=== PATIENT | male | born 1940 | race Asian ===

== ENCOUNTER 2024-03-15 09:00 | Inpatient (IN) | payer MEDICARE ==
[~2024-03-15] VITALS: Ht 167.6 cm; Wt 74.7 kg
[2024-03-15 09:10] LABS: COVID AG,FIA SOURCE NASAL SWAB
[2024-03-15 09:34] LABS: SARS-COV2 (COVID) ANTIGEN,FIA Negative (Negative)
[2024-03-15 09:35] LABS: BASOPHILS % (AUTO) 0.2 % (0.0-2.0); EOSINOPHILS % (AUTO) 0.1 % (1.0-6.0); HEMATOCRIT 37.1 % (41-53); HEMOGLOBIN 12.7 g/dL (13.5-17.5); LYMPHOCYTES # (AUTO) 0.3 K/uL (1.0-4.8); LYMPHOCYTES % (AUTO) 2.6 % (22.0-44.0); MEAN CORPUSCULAR HEMOGLOBIN 33.5 pg (26.0-34.0); MEAN CORPUSCULAR HGB CONC 34.3 G/dL (31.0-37.0); MEAN CORPUSCULAR VOLUME 98 fL (80-100); MONOCYTES # (AUTO) 0.7 K/uL (0.1-1.0); MONOCYTES % (AUTO) 6.3 % (2.0-9.0); NEUTROPHILS # (AUTO) 9.5 K/uL (1.8-7.7); NEUTROPHILS % (AUTO) 90.8 % (40.0-70.0); PLATELET COUNT (AUTO) 195 K/uL (150-450); RED CELL DISTRIBUTION WIDTH 13.2 % (11.5-14.5); WHITE BLOOD COUNT (AUTO) 10.4 K/uL (4.5-11.0)
[2024-03-15 09:46] LABS: INFLUENZA TYPE A NEGATIVE FOR TYPE A (NEGATIVE); INFLUENZA TYPE B NEGATIVE FOR TYPE B (NEGATIVE)
[2024-03-15 09:46] LABS: CALCIUM, TOTAL 8.5 mg/dL (8.8-10.5); CREATININE 1.32 mg/dL (0.60-1.30)
[2024-03-15 09:54] LABS: LACTIC ACID 1.6 mmol/L (0.4-2.0)
[2024-03-15 10:00] LABS: MAGNESIUM 1.7 mg/dL (1.80-2.40); TROPONIN I-HIGH SENSITIVITY 7066 ng/L (<76)
[2024-03-15] MEDS: ASPIRIN 81 MG CHEWABLE TABLET PO ONE (10:13)
[2024-03-15] MEDS ORDERED: HEPARIN SODIUM,PORCINE 5,000 UNITS/ML VIAL IVP PRN ×2 (10:15)
[2024-03-15] MEDS ORDERED: HEPARIN SODIUM,PORCINE 5,000 UNITS/ML VIAL IVP ONE (10:15)
[2024-03-15 10:45] LABS: PROTHROMBIN TIME 10.8 SEC (9.4-11.6)
[2024-03-15] MEDS ORDERED: DEXTROSE 50%-WATER 25 GM/50 ML SYRINGE IVP PRN (10:45)
[2024-03-15] MEDS ORDERED: ONDANSETRON HCL 4 MG/2 ML VIAL IVP PRN (10:45)
[2024-03-15] MEDS: HEPARIN SODIUM,PORCINE 5,000 UNITS/ML VIAL IVP ONE (10:51)
[2024-03-15] MEDS: MAGNESIUM SULFATE 2 GM/WATER 50 ML IV ONE (11:05)
[2024-03-15] MEDS: HEPARIN SODIUM 25000 UNITS/D5W 250 ML IV PRN (11:07)
[2024-03-15] MEDS: FUROSEMIDE 20 MG/2 ML VIAL IVP SCH ×2 (11:08→21:25)
[2024-03-15] MEDS: ATORVASTATIN CALCIUM 40 MG TABLET PO SCH (11:08)
[2024-03-15] MEDS: METOPROLOL TARTRATE 25 MG TABLET PO SCH (11:09)
[2024-03-15 12:43] LABS: TROPONIN I-HIGH SENSITIVITY 7941 ng/L (<76)
[2024-03-15 14:05] VITALS: PULSE 68; RESP 23; O2SAT 98
[2024-03-15] MEDS: FUROSEMIDE 20 MG/2 ML VIAL IVP ONE (14:10)
[2024-03-15 15:10] LABS: APPEARANCE,URINE CLEAR (CLEAR); BILIRUBIN,URINE NEGATIVE (NEGATIVE); COLOR,URINE LIGHT YELLOW (YELLOW); GLUCOSE, URINE (UA) NEGATIVE (NEGATIVE); KETONES,URINE NEGATIVE (NEGATIVE); LEUKOCYTE ESTERASE ,URINE NEGATIVE (NEGATIVE); NITRATE,URINE NEGATIVE (NEGATIVE); OCCULT BLOOD,URINE NEGATIVE (NEGATIVE); PROTEIN,URINE TRACE mg/dL (NEGATIVE); SPECIFIC GRAVITIY, URINE 1.009 (1.003-1.030); UROBILINOGEN,URINE <=1.0 mg/dL (<=1.0)
[2024-03-15 16:04] VITALS: PULSE 65; RESP 20; O2SAT 99
[2024-03-15 16:15] LABS: ABG BASE EXCESS 0.3 mmol/L (-2.0-3.0); ABG CARBOXYHEMOGLOBIN 0.5 % (0.5-1.5); ABG METHEMOGLOBIN 0.9 % (0.0-1.5); ABG OXYGEN CONTENT 18.4 mL/dL (15.0-23.0); ABG OXYGEN SATURATION 98.8 % (94.0-98.0); ABG OXYHEMOGLOBIN 97.4 % (94.0-98.0); ABG PCO2 37 mmHg (32.0-48.0); ABG PH 7.435 (7.350-7.450); ABG TOTAL HEMOGLOBIN 13.3 G/dL (13.5-17.5); PO2, ARTERIAL BG 117.3 mmHg (83.0-108.0); SOURCE, BLOOD GAS ARTERIAL; TEMPERATURE, FAHRENHEIT, BG 98.5 FAHREN (96.0-98.6)
[2024-03-15 16:16] LABS: ABG A-A DIFF O2 125.1 mmHg (10-20.0); ALLEN TEST, BLOOD GAS Positive; INSPIRATORY TIME, BG 0.9 SEC; O2 DEVICE,BLOOD GAS BIPAP (ROOM AIR); PRESSURE SUPPORT, BG 11 cm H2O; SITE, BLOOD GAS RT RADIAL; SPONTANEOUS VT, BG 517 ml
[2024-03-15 20:45] VITALS: BP 149/71; PULSE 79; RESP 26; TEMP 98.5; O2SAT 94
[2024-03-15] MEDS: DOCUSATE SODIUM 100 MG CAPSULE PO SCH (21:00)
[2024-03-15] MEDS: FAMOTIDINE 20 MG TABLET PO SCH (21:25)
[2024-03-15] MEDS ORDERED: INFLUENZA VIRUS VACCINE TVS (6MO+) 2024-25/PF 45 MCG/0.5 ML SYRINGE IM. ONE (21:30)
[2024-03-15 22:11] LABS: GLUCOMETER DEV NAME(LOC) ICUN.5; GLUCOSE,POINT OF CARE 146 MG/DL (70-110)
[2024-03-16] VITALS: BP 133/71; PULSE 77; RESP 23; TEMP 98.5; O2SAT 95
[2024-03-16] MEDS ORDERED: HEPARIN SODIUM 25000 UNITS/D5W 250 ML IV PRN ×2 (01:30→16:30)
[2024-03-16] MEDS ORDERED: HEPARIN SODIUM,PORCINE 5,000 UNITS/ML VIAL IVP ONE (01:30)
[2024-03-16] MEDS ORDERED: HEPARIN SODIUM,PORCINE 5,000 UNITS/ML VIAL IVP PRN ×4 (01:30→16:30)
[2024-03-16 04:00] VITALS: BP 135/63; PULSE 73; RESP 20; TEMP 97.9; O2SAT 94
[2024-03-16 05:41] LABS: GLUCOMETER DEV NAME(LOC) ICUN.5; GLUCOSE,POINT OF CARE 115 MG/DL (70-110)
[2024-03-16 05:43] LABS: BASOPHILS % (AUTO) 0.1 % (0.0-2.0); EOSINOPHILS % (AUTO) 0.2 % (1.0-6.0); HEMATOCRIT 37.5 % (41-53); HEMOGLOBIN 12.9 g/dL (13.5-17.5); LYMPHOCYTES # (AUTO) 0.6 K/uL (1.0-4.8); LYMPHOCYTES % (AUTO) 6.1 % (22.0-44.0); MEAN CORPUSCULAR HEMOGLOBIN 33.6 pg (26.0-34.0); MEAN CORPUSCULAR HGB CONC 34.5 G/dL (31.0-37.0); MEAN CORPUSCULAR VOLUME 97 fL (80-100); MONOCYTES # (AUTO) 0.8 K/uL (0.1-1.0); MONOCYTES % (AUTO) 7.8 % (2.0-9.0); NEUTROPHILS # (AUTO) 8.6 K/uL (1.8-7.7); PLATELET COUNT (AUTO) 217 K/uL (150-450); RED BLOOD CELL COUNT(AUTO) 3.85 MIL/uL (4.50-5.90); WHITE BLOOD COUNT (AUTO) 10.1 K/uL (4.5-11.0)
[2024-03-16 05:48] LABS: HEMOGLOBIN A1C 6.2 % (3.8-5.6)
[2024-03-16 05:56] LABS: ANION GAP 9 mmol/L (8-16); CARBON DIOXIDE 29 mmol/L (22-29); CHLORIDE 101 mmol/L (98-107); CHOL/HDL RATIO 2.2 (4.2-7.3); CHOLESTEROL 136 mg/dL (131-200); CREATININE 1.11 mg/dL (0.60-1.30); GLOMERULAR FILTR. RATE CALC > 60 mL/min (>60); GLUCOSE,RANDOM 125 mg/dL (70-110); HDL CHOLESTEROL 63 mg/dL (40-60); LDL CHOL (CALC.) 63 mg/dL (0-130); POTASSIUM 3.3 mmol/L (3.5-5.1); SODIUM SERUM 139 mmol/L (136-145); TRIGLYCERIDES 51 mg/dL (15-150); UREA NITROGEN, BLOOD 19 mg/dL (7-18)
[2024-03-16 06:02] LABS: NEUTROPHILS % (AUTO) 85.8 % (40.0-70.0)
[2024-03-16 06:03] LABS: CALCIUM, TOTAL 8.4 mg/dL (8.8-10.5)
[2024-03-16 06:15] LABS: TROPONIN I-HIGH SENSITIVITY 7576 ng/L (<76)
[2024-03-16] MEDS: POTASSIUM CHL 10 MEQ/WATER 50 ML IV PRN (06:45)
[2024-03-16] MEDS ORDERED: MAGNESIUM SULFATE 2 GM/WATER 50 ML IV PRN (06:45)
[2024-03-16] MEDS ORDERED: MAGNESIUM SULFATE 4 GM/WATER 100 ML IV PRN (06:45)
[2024-03-16] MEDS: POTASSIUM CHLORIDE 20 MEQ ER TABLET PO PRN (07:45)
[2024-03-16 08:00] VITALS: BP 144/71; PULSE 69; RESP 16; TEMP 98.2; O2SAT 96
[2024-03-16] MEDS ORDERED: POTASSIUM CHLORIDE 20 MEQ ER TABLET PO PRN (08:30)
[2024-03-16] MEDS ORDERED: POTASSIUM CHL 10 MEQ/WATER 50 ML IV PRN (08:30)
[2024-03-16] MEDS: ASPIRIN 81 MG DR TABLET PO SCH (08:59)
[2024-03-16] MEDS ORDERED: FUROSEMIDE 20 MG TABLET PO SCH (09:00)
[2024-03-16] MEDS: LISINOPRIL 5 MG TABLET PO SCH (09:10)
[2024-03-16] MEDS: SPIRONOLACTONE 25 MG TABLET PO SCH (09:10)
[2024-03-16 12:00] VITALS: BP 122/57; PULSE 72; PULSE 73; RESP 23; TEMP 98.3; O2SAT 97
[2024-03-16 15:10] LABS: SPECIMENTYPE,BODY FLUID PLEURAL
[2024-03-16 15:14] LABS: APPEARANCE,SPUN,BODY FLUID CLEAR (CLEAR); APPEARANCE,UNSPUN,BODY FLUID HAZY (CLEAR); BASOPHILS,BODY FLUID 0 %; COLOR,BODY FLUID YELLOW (LT YELLOW); EOSINOPHILS,BF (ANAL) 0 %; LYMPHOCYTES,BODY FLUID 27 %; MONOCYTES,BODY FLUID 3 %; NEUTROPHILS,BODY FLUID 53 %; TOTAL VOLUME,BODY FLUID 425 mL; WBC, BODY FLUID 365 /cu. mm.
[2024-03-16 15:15] LABS: OTHER CELLS,BODY FLUID MESOTHELIALS
[2024-03-16 16:00] VITALS: BP 112/62; PULSE 69; PULSE 73; RESP 25; TEMP 98.8; O2SAT 97
[2024-03-16 20:00] VITALS: BP 126/54; PULSE 75; RESP 21; TEMP 98.6; O2SAT 95
[2024-03-16 20:36] LABS: GLUCOMETER DEV NAME(LOC) ICU.S6; GLUCOSE,POINT OF CARE 104 MG/DL (70-110)
[2024-03-16 20:36] LABS: GLUCOMETER DEV NAME(LOC) ICU.S6; GLUCOSE,POINT OF CARE 96 MG/DL (70-110)
[2024-03-16] MEDS: HEPARIN SODIUM,PORCINE 5,000 UNITS/ML VIAL SQ SCH (23:58)
[2024-03-17] VITALS (17 sets, daily range): BP systolic 103–154; BP diastolic 47–82; PULSE 72–85; RESP 11–27; TEMP 98–98.9; O2SAT 92–98
[2024-03-17 03:31] LABS: GLUCOMETER DEV NAME(LOC) ICUN.5; GLUCOSE,POINT OF CARE 135 MG/DL (70-110)
[2024-03-17 05:16] LABS: GLUCOMETER DEV NAME(LOC) ICUN.5; GLUCOSE,POINT OF CARE 106 MG/DL (70-110)
[2024-03-17 05:45] LABS: BASOPHILS % (AUTO) 0.4 % (0.0-2.0); EOSINOPHILS % (AUTO) 0.9 % (1.0-6.0); HEMATOCRIT 40.6 % (41-53); HEMOGLOBIN 13.6 g/dL (13.5-17.5); LYMPHOCYTES # (AUTO) 0.7 K/uL (1.0-4.8); LYMPHOCYTES % (AUTO) 8.7 % (22.0-44.0); MEAN CORPUSCULAR HEMOGLOBIN 32.6 pg (26.0-34.0); MEAN CORPUSCULAR HGB CONC 33.5 G/dL (31.0-37.0); MEAN CORPUSCULAR VOLUME 98 fL (80-100); MONOCYTES # (AUTO) 0.8 K/uL (0.1-1.0); NEUTROPHILS # (AUTO) 6.6 K/uL (1.8-7.7); PLATELET COUNT (AUTO) 247 K/uL (150-450); RED BLOOD CELL COUNT(AUTO) 4.16 MIL/uL (4.50-5.90); RED CELL DISTRIBUTION WIDTH 13.4 % (11.5-14.5); WHITE BLOOD COUNT (AUTO) 8.2 K/uL (4.5-11.0)
[2024-03-17 05:52] LABS: ANION GAP 7 mmol/L (8-16); CALCIUM, TOTAL 8.6 mg/dL (8.8-10.5); CARBON DIOXIDE 30 mmol/L (22-29); CHLORIDE 102 mmol/L (98-107); CREATININE 1.11 mg/dL (0.60-1.30); GLOMERULAR FILTR. RATE CALC > 60 mL/min (>60); GLUCOSE,RANDOM 109 mg/dL (70-110); POTASSIUM 3.7 mmol/L (3.5-5.1); SODIUM SERUM 139 mmol/L (136-145); UREA NITROGEN, BLOOD 23 mg/dL (7-18)
[2024-03-17] MEDS ORDERED: NITROGLYCERIN 50 MG/D5% WATER 250 ML ONE (08:08)
[2024-03-17] MEDS ORDERED: SODIUM BICARBONATE 50 MEQ/50 ML VIAL ONE (08:08)
[2024-03-17] MEDS ORDERED: VERAPAMIL HCL 2.5 MG/ML 2 ML VIAL ONE (08:08)
[2024-03-17] MEDS ORDERED: IOHEXOL 300 MG/ML 100 ML VIAL ONE (08:08)
[2024-03-17] MEDS ORDERED: LIDOCAINE/PF 1% 30 ML VIAL ONE (08:08)
[2024-03-17] MEDS ORDERED: HEPARIN SODIUM 1000 UNITS/NS 1,000 ML ONE (08:08)
[2024-03-17] MEDS ORDERED: MIDAZOLAM HCL 2 MG/2 ML VIAL ONE (08:47)
[2024-03-17] MEDS ORDERED: FentaNYL CITRATE PF 100 MCG/2 ML VIAL ONE (08:47)
[2024-03-17] MEDS: HEPARIN SODIUM,PORCINE 1,000 UNITS/ML 10 ML VIAL IARTER ONE (09:33)
[2024-03-17] MEDS: VERAPAMIL HCL 2.5 MG/ML 2 ML VIAL IARTER ONE (09:33)
[2024-03-17] MEDS: LIDOCAINE 1% 30 ML/SOD BICARB 8.4% 4 ML SQ ONE (09:34)
[2024-03-17] MEDS: FentaNYL CITRATE PF 100 MCG/2 ML VIAL IVP ONE (09:35)
[2024-03-17] MEDS: SODIUM CHLORIDE 0.9% 500 ML IV ONE (09:36)
[2024-03-17] MEDS: NITROGLYCERIN/D5W 50 MG/250 ML IV BOTTLE IARTER ONE (09:37)
[2024-03-17] MEDS: IOHEXOL 300 MG/ML 100 ML VIAL ICOR ONE (09:38)
[2024-03-17] MEDS: HEPARIN SODIUM 2,000 UNITS in HEPARIN SODIUM 1000 UNITS/NS 1,000 ML IARTER ONE (09:38)
[2024-03-17] MEDS: MIDAZOLAM HCL 2 MG/2 ML VIAL IVP ONE (09:39)
[2024-03-17 10:06] LABS: TOTAL PROTEIN,BODY FLUID,REF 2.5 g/dL
[2024-03-17 11:50] LABS: GLUCOMETER DEV NAME(LOC) ICU.S6; GLUCOSE,POINT OF CARE 100 MG/DL (70-110)
[2024-03-17 17:10] LABS: GLUCOMETER DEV NAME(LOC) ICU.S6; GLUCOSE,POINT OF CARE 124 MG/DL (70-110)
[2024-03-17] MEDS: ACETAMINOPHEN 325 MG TABLET PO PRN (20:28)
[2024-03-17] MEDS: INSULIN LISPRO 100 UNITS/ML SQ PRN (20:34)
[2024-03-18] VITALS (7 sets, daily range): BP systolic 110–131; BP diastolic 57–66; PULSE 73–81; RESP 16–19; TEMP 97.6–98; O2SAT 97–99
[2024-03-18 00:31] LABS: GLUCOMETER DEV NAME(LOC) 5S.2D; GLUCOSE,POINT OF CARE 141 MG/DL (70-110)
[2024-03-18 07:04] LABS: BAND NEUTROPHILS % (MANUAL) 0 % (0-5)
[2024-03-18 07:07] LABS: HEMATOCRIT 39.6 % (41-53); HEMOGLOBIN 13.5 g/dL (13.5-17.5); MEAN CORPUSCULAR HEMOGLOBIN 33.1 pg (26.0-34.0); MEAN CORPUSCULAR HGB CONC 34.2 G/dL (31.0-37.0); MEAN CORPUSCULAR VOLUME 97 fL (80-100); PLATELET COUNT (AUTO) 261 K/uL (150-450); RED BLOOD CELL COUNT(AUTO) 4.08 MIL/uL (4.50-5.90); RED CELL DISTRIBUTION WIDTH 13.1 % (11.5-14.5); WHITE BLOOD COUNT (AUTO) 6.8 K/uL (4.5-11.0)
[2024-03-18 07:11] LABS: GLUCOMETER DEV NAME(LOC) 5N.2C; GLUCOSE,POINT OF CARE 86 MG/DL (70-110)
[2024-03-18 07:39] LABS: ALANINE AMINOTRANSFERASE 24 U/L (12-78); ALBUMIN 2.5 g/dL (3.4-5.0); ALKALINE PHOSPHATASE 112 U/L (46-116); ANION GAP 6 mmol/L (8-16); ASPARTATE AMINOTRANSFERASE 28 U/L (15-37); BILIRUBIN,TOTAL 0.8 mg/dL (0.1-1.0); CALCIUM, TOTAL 8.8 mg/dL (8.8-10.5); CARBON DIOXIDE 31 mmol/L (22-29); CHLORIDE 103 mmol/L (98-107); CREATININE 1.14 mg/dL (0.60-1.30); GLOMERULAR FILTR. RATE CALC > 60 mL/min (>60); GLUCOSE,RANDOM 87 mg/dL (70-110); POTASSIUM 3.8 mmol/L (3.5-5.1); SODIUM SERUM 140 mmol/L (136-145); UREA NITROGEN, BLOOD 23 mg/dL (7-18)
[2024-03-18] MEDS: METOPROLOL SUCCINATE 25 MG ER TABLET PO SCH (08:12)
[2024-03-18 08:41] LABS: BASOPHILS % (MANUAL) 1 % (0-2); EOSINOPHILS % (MANUAL) 2 % (1-6); LYMPHOCYTES % (MANUAL) 8 % (22-44); MONOCYTES % (MANUAL) 6 % (2-9); SEGMENTED NEUTROPHILS % 83 % (40-70); TOTAL CELLS COUNTED 100
[2024-03-18 11:51] LABS: GLUCOMETER DEV NAME(LOC) 5N.2C; GLUCOSE,POINT OF CARE 127 MG/DL (70-110)
[2024-03-19 00:32] LABS: GLUCOMETER DEV NAME(LOC) 5N.1D; GLUCOSE,POINT OF CARE 122 MG/DL (70-110)
[2024-03-19 00:32] LABS: GLUCOMETER DEV NAME(LOC) 5S.2D; GLUCOSE,POINT OF CARE 163 MG/DL (70-110)
[2024-03-19 03:28] VITALS: BP 120/73; PULSE 68; RESP 18; TEMP 97.9; O2SAT 98
[2024-03-19 07:06] LABS: GLUCOMETER DEV NAME(LOC) 5N.1D; GLUCOSE,POINT OF CARE 102 MG/DL (70-110)
[2024-03-19 07:19] LABS: BASOPHILS % (AUTO) 0.7 % (0.0-2.0); EOSINOPHILS % (AUTO) 5.7 % (1.0-6.0); HEMATOCRIT 38.7 % (41-53); HEMOGLOBIN 13.3 g/dL (13.5-17.5); LYMPHOCYTES # (AUTO) 1.3 K/uL (1.0-4.8); LYMPHOCYTES % (AUTO) 19.5 % (22.0-44.0); MEAN CORPUSCULAR HEMOGLOBIN 33.1 pg (26.0-34.0); MEAN CORPUSCULAR HGB CONC 34.2 G/dL (31.0-37.0); MEAN CORPUSCULAR VOLUME 97 fL (80-100); MONOCYTES # (AUTO) 0.7 K/uL (0.1-1.0); MONOCYTES % (AUTO) 10.7 % (2.0-9.0); NEUTROPHILS # (AUTO) 4.2 K/uL (1.8-7.7); NEUTROPHILS % (AUTO) 63.4 % (40.0-70.0); PLATELET COUNT (AUTO) 295 K/uL (150-450); RED CELL DISTRIBUTION WIDTH 12.9 % (11.5-14.5); WHITE BLOOD COUNT (AUTO) 6.7 K/uL (4.5-11.0)
[2024-03-19 08:39] VITALS: BP 127/77; PULSE 79; RESP 18; TEMP 98; O2SAT 99
[2024-03-19 11:10] VITALS: BP 130/64; PULSE 70; RESP 19; TEMP 98.3; O2SAT 97
[2024-03-19 15:13] VITALS: BP 107/66; PULSE 68; RESP 18; TEMP 98.1; O2SAT 97
[2024-03-19 18:31] LABS: GLUCOMETER DEV NAME(LOC) 5S.2D; GLUCOSE,POINT OF CARE 145 MG/DL (70-110)
[2024-03-19 18:31] LABS: GLUCOMETER DEV NAME(LOC) 5S.2D; GLUCOSE,POINT OF CARE 106 MG/DL (70-110)
[2024-03-19 19:35] VITALS: BP 99/53; PULSE 75; RESP 18; TEMP 98.1; O2SAT 98
[2024-03-19 23:52] VITALS: BP 125/67; PULSE 70; RESP 19; TEMP 97.5; O2SAT 100
[2024-03-20 01:46] LABS: GLUCOMETER DEV NAME(LOC) 5N.2C; GLUCOSE,POINT OF CARE 138 MG/DL (70-110)
[2024-03-20 03:40] VITALS: BP 121/62; PULSE 70; RESP 18; TEMP 97.8; O2SAT 95
[2024-03-20 07:37] LABS: ANION GAP 6 mmol/L (8-16); CALCIUM, TOTAL 8.9 mg/dL (8.8-10.5); CARBON DIOXIDE 31 mmol/L (22-29); CHLORIDE 102 mmol/L (98-107); CREATININE 1.09 mg/dL (0.60-1.30); GLOMERULAR FILTR. RATE CALC > 60 mL/min (>60); GLUCOSE,RANDOM 104 mg/dL (70-110); POTASSIUM 3.6 mmol/L (3.5-5.1); SODIUM SERUM 139 mmol/L (136-145); UREA NITROGEN, BLOOD 21 mg/dL (7-18)
[2024-03-20 07:47] LABS: BASOPHILS % (AUTO) 0.7 % (0.0-2.0); EOSINOPHILS % (AUTO) 6.6 % (1.0-6.0); HEMOGLOBIN 13.4 g/dL (13.5-17.5); LYMPHOCYTES # (AUTO) 1.2 K/uL (1.0-4.8); LYMPHOCYTES % (AUTO) 20.8 % (22.0-44.0); MEAN CORPUSCULAR HEMOGLOBIN 33.2 pg (26.0-34.0); MEAN CORPUSCULAR HGB CONC 34.4 G/dL (31.0-37.0); MEAN CORPUSCULAR VOLUME 97 fL (80-100); MONOCYTES # (AUTO) 0.6 K/uL (0.1-1.0); MONOCYTES % (AUTO) 11.3 % (2.0-9.0); NEUTROPHILS # (AUTO) 3.4 K/uL (1.8-7.7); NEUTROPHILS % (AUTO) 60.6 % (40.0-70.0); PLATELET COUNT (AUTO) 334 K/uL (150-450); RED BLOOD CELL COUNT(AUTO) 4.04 MIL/uL (4.50-5.90); WHITE BLOOD COUNT (AUTO) 5.7 K/uL (4.5-11.0)
[2024-03-20 08:15] VITALS: BP 119/57; PULSE 71; RESP 16; TEMP 98; O2SAT 99
[2024-03-20 08:42] VITALS: BP 118/64; PULSE 72; RESP 18; TEMP 99; O2SAT 99
[2024-03-20 11:51] LABS: GLUCOMETER DEV NAME(LOC) 5S.1D; GLUCOSE,POINT OF CARE 117 MG/DL (70-110)
[2024-03-20 12:04] VITALS: BP 103/57; PULSE 69; RESP 18; TEMP 97.8; O2SAT 96
[2024-03-20 15:57] VITALS: BP 106/55; PULSE 68; RESP 17; TEMP 97.7; O2SAT 98
[2024-03-20 18:06] LABS: GLUCOMETER DEV NAME(LOC) 5S.1D; GLUCOSE,POINT OF CARE 116 MG/DL (70-110)
[2024-03-20 18:06] LABS: GLUCOMETER DEV NAME(LOC) 5S.2D; GLUCOSE,POINT OF CARE 122 MG/DL (70-110)
[2024-03-20 19:45] VITALS: BP 105/57; PULSE 72; RESP 18; TEMP 98.3; O2SAT 97
[2024-03-21] VITALS (7 sets, daily range): BP systolic 95–120; BP diastolic 50–63; PULSE 64–78; RESP 17–19; TEMP 97.4–98.5; O2SAT 96–100
[2024-03-21 06:26] LABS: GLUCOMETER DEV NAME(LOC) 5S.1D; GLUCOSE,POINT OF CARE 136 MG/DL (70-110)
[2024-03-21 07:10] LABS: GLUCOMETER DEV NAME(LOC) 5S.1D; GLUCOSE,POINT OF CARE 117 MG/DL (70-110)
[2024-03-21 12:21] LABS: GLUCOMETER DEV NAME(LOC) 5S.1D; GLUCOSE,POINT OF CARE 129 MG/DL (70-110)
[2024-03-22] VITALS (7 sets, daily range): BP systolic 98–121; BP diastolic 55–65; PULSE 60–67; RESP 17–18; TEMP 97.5–98.2; O2SAT 96–100
[2024-03-22 03:06] LABS: GLUCOMETER DEV NAME(LOC) 5S.2D; GLUCOSE,POINT OF CARE 119 MG/DL (70-110)
[2024-03-22 03:06] LABS: GLUCOMETER DEV NAME(LOC) 5S.2D; GLUCOSE,POINT OF CARE 160 MG/DL (70-110)
[2024-03-22 08:16] LABS: BASOPHILS % (AUTO) 0.7 % (0.0-2.0); EOSINOPHILS % (AUTO) 6.1 % (1.0-6.0); HEMATOCRIT 38.6 % (41-53); HEMOGLOBIN 13.2 g/dL (13.5-17.5); LYMPHOCYTES # (AUTO) 1.4 K/uL (1.0-4.8); LYMPHOCYTES % (AUTO) 24.2 % (22.0-44.0); MEAN CORPUSCULAR HEMOGLOBIN 33.2 pg (26.0-34.0); MEAN CORPUSCULAR HGB CONC 34.3 G/dL (31.0-37.0); MEAN CORPUSCULAR VOLUME 97 fL (80-100); MONOCYTES # (AUTO) 0.5 K/uL (0.1-1.0); MONOCYTES % (AUTO) 9.1 % (2.0-9.0); NEUTROPHILS # (AUTO) 3.4 K/uL (1.8-7.7); NEUTROPHILS % (AUTO) 59.9 % (40.0-70.0); PLATELET COUNT (AUTO) 368 K/uL (150-450); RED BLOOD CELL COUNT(AUTO) 3.99 MIL/uL (4.50-5.90); RED CELL DISTRIBUTION WIDTH 13.2 % (11.5-14.5); WHITE BLOOD COUNT (AUTO) 5.6 K/uL (4.5-11.0)
[2024-03-22 08:21] LABS: GLUCOMETER DEV NAME(LOC) 5S.1D; GLUCOSE,POINT OF CARE 144 MG/DL (70-110)
[2024-03-22 11:36] LABS: GLUCOMETER DEV NAME(LOC) 5S.1D; GLUCOSE,POINT OF CARE 121 MG/DL (70-110)
[2024-03-22 21:01] LABS: GLUCOMETER DEV NAME(LOC) 5S.1D; GLUCOSE,POINT OF CARE 134 MG/DL (70-110)
[2024-03-22 21:01] LABS: GLUCOMETER DEV NAME(LOC) 5S.1D; GLUCOSE,POINT OF CARE 129 MG/DL (70-110)
[2024-03-23 04:29] VITALS: BP 97/55; PULSE 63; RESP 17; TEMP 98; O2SAT 96
[2024-03-23 07:37] LABS: BASOPHILS % (AUTO) 0.5 % (0.0-2.0); EOSINOPHILS % (AUTO) 5.5 % (1.0-6.0); HEMATOCRIT 39.7 % (41-53); HEMOGLOBIN 13.7 g/dL (13.5-17.5); LYMPHOCYTES # (AUTO) 1.5 K/uL (1.0-4.8); LYMPHOCYTES % (AUTO) 23.2 % (22.0-44.0); MEAN CORPUSCULAR HEMOGLOBIN 33.3 pg (26.0-34.0); MEAN CORPUSCULAR HGB CONC 34.6 G/dL (31.0-37.0); MEAN CORPUSCULAR VOLUME 96 fL (80-100); MONOCYTES # (AUTO) 0.6 K/uL (0.1-1.0); MONOCYTES % (AUTO) 9.6 % (2.0-9.0); NEUTROPHILS % (AUTO) 61.2 % (40.0-70.0); PLATELET COUNT (AUTO) 365 K/uL (150-450); RED BLOOD CELL COUNT(AUTO) 4.13 MIL/uL (4.50-5.90); RED CELL DISTRIBUTION WIDTH 12.7 % (11.5-14.5); WHITE BLOOD COUNT (AUTO) 6.6 K/uL (4.5-11.0)
[2024-03-23 07:41] VITALS: BP 118/64; PULSE 68; RESP 18; TEMP 98; O2SAT 98
[2024-03-23 07:43] LABS: CALCIUM, TOTAL 9.2 mg/dL (8.8-10.5); CREATININE 1.23 mg/dL (0.60-1.30); POTASSIUM 4.1 mmol/L (3.5-5.1)
[2024-03-23 09:06] LABS: GLUCOMETER DEV NAME(LOC) 5S.1D; GLUCOSE,POINT OF CARE 105 MG/DL (70-110)
[2024-03-23 11:08] VITALS: BP 110/60; PULSE 64; RESP 19; TEMP 98; O2SAT 97
[2024-03-23 13:11] LABS: GLUCOMETER DEV NAME(LOC) 5N.2C; GLUCOSE,POINT OF CARE 90 MG/DL (70-110)
[2024-03-23 16:07] VITALS: BP 129/60; PULSE 68; RESP 19; TEMP 97.8; O2SAT 97
[2024-03-23 19:36] VITALS: BP 107/58; PULSE 65; RESP 18; TEMP 98.1; O2SAT 99
[2024-03-23 21:31] LABS: GLUCOMETER DEV NAME(LOC) 5S.2D; GLUCOSE,POINT OF CARE 145 MG/DL (70-110)
[2024-03-23 23:36] VITALS: BP 119/57; PULSE 65; RESP 17; TEMP 98.1; O2SAT 98
[2024-03-24 03:27] VITALS: BP 111/58; PULSE 66; RESP 16; TEMP 97.9; O2SAT 97
[2024-03-24 05:56] LABS: GLUCOMETER DEV NAME(LOC) 5S.2D; GLUCOSE,POINT OF CARE 156 MG/DL (70-110)
[2024-03-24 07:51] VITALS: BP 110/56; PULSE 66; RESP 18; TEMP 98; O2SAT 98
[2024-03-24] MEDS: DAPAGLIFLOZIN PROPANEDIOL 5 MG TABLET PO SCH (09:56)
[2024-03-24 11:11] LABS: GLUCOMETER DEV NAME(LOC) 5N.2C; GLUCOSE,POINT OF CARE 101 MG/DL (70-110)
[2024-03-24 11:29] VITALS: BP 116/59; PULSE 63; RESP 18; TEMP 98; O2SAT 98
[2024-03-24 17:16] LABS: GLUCOMETER DEV NAME(LOC) 5S.2D; GLUCOSE,POINT OF CARE 116 MG/DL (70-110)
[2024-03-24 17:31] VITALS: BP 100/51; PULSE 63; RESP 19; TEMP 97; O2SAT 98
[2024-03-24 19:11] LABS: GLUCOMETER DEV NAME(LOC) 5S.1D; GLUCOSE,POINT OF CARE 102 MG/DL (70-110)
[2024-03-24 19:39] VITALS: BP 100/51; PULSE 60; RESP 18; TEMP 97.7; O2SAT 97
[2024-03-24 23:44] VITALS: BP 108/53; PULSE 60; RESP 18; TEMP 98.2; O2SAT 99
[2024-03-24 23:46] LABS: GLUCOMETER DEV NAME(LOC) 5S.1D; GLUCOSE,POINT OF CARE 129 MG/DL (70-110)
[2024-03-25 04:44] VITALS: BP 114/59; PULSE 61; RESP 18; TEMP 97.7; O2SAT 98
[2024-03-25] MEDS: MAGNESIUM HYDROXIDE SUSPENSION 30 ML UDCUP PO PRN (08:13)
[2024-03-25 08:15] VITALS: BP 107/53; PULSE 65; RESP 18; TEMP 97.7; O2SAT 98
[2024-03-25 08:25] LABS: GLUCOMETER DEV NAME(LOC) 5S.2D; GLUCOSE,POINT OF CARE 122 MG/DL (70-110)
[2024-03-25] MEDS ORDERED: FUROSEMIDE 20 MG/2 ML VIAL IVP SCH (09:00)
[2024-03-25] MEDS: BENZONATATE 100 MG CAPSULE PO SCH (10:56)
[2024-03-25 11:50] LABS: GLUCOMETER DEV NAME(LOC) 5N.2C; GLUCOSE,POINT OF CARE 134 MG/DL (70-110)
[2024-03-25 11:51] VITALS: BP 107/53; PULSE 63; RESP 18; TEMP 97.7; O2SAT 98
[2024-03-25 16:32] VITALS: BP 110/56; PULSE 65; RESP 18; TEMP 98.2; O2SAT 97
[2024-03-25 19:17] VITALS: BP 100/56; PULSE 70; RESP 17; TEMP 98.3; O2SAT 96
[2024-03-25 19:26] LABS: GLUCOMETER DEV NAME(LOC) 5S.1D; GLUCOSE,POINT OF CARE 107 MG/DL (70-110)
[2024-03-25 21:26] LABS: GLUCOMETER DEV NAME(LOC) 5N.2C; GLUCOSE,POINT OF CARE 179 MG/DL (70-110)
[2024-03-26 00:06] VITALS: BP 99/60; PULSE 62; RESP 18; TEMP 97.6; O2SAT 99
[2024-03-26 06:12] VITALS: BP 118/59; PULSE 65; RESP 18; TEMP 98; O2SAT 98
[2024-03-26 06:51] LABS: GLUCOMETER DEV NAME(LOC) 5N.2C; GLUCOSE,POINT OF CARE 100 MG/DL (70-110)
[2024-03-26 07:21] VITALS: BP 114/60; PULSE 69; RESP 18; TEMP 98; O2SAT 96
[2024-03-26 07:46] LABS: BASOPHILS % (AUTO) 0.8 % (0.0-2.0); EOSINOPHILS % (AUTO) 4.2 % (1.0-6.0); HEMATOCRIT 40.7 % (41-53); HEMOGLOBIN 14.1 g/dL (13.5-17.5); LYMPHOCYTES # (AUTO) 1.5 K/uL (1.0-4.8); LYMPHOCYTES % (AUTO) 25.4 % (22.0-44.0); MEAN CORPUSCULAR HEMOGLOBIN 33.4 pg (26.0-34.0); MEAN CORPUSCULAR HGB CONC 34.5 G/dL (31.0-37.0); MEAN CORPUSCULAR VOLUME 97 fL (80-100); MONOCYTES # (AUTO) 0.6 K/uL (0.1-1.0); MONOCYTES % (AUTO) 10.5 % (2.0-9.0); NEUTROPHILS # (AUTO) 3.4 K/uL (1.8-7.7); NEUTROPHILS % (AUTO) 59.1 % (40.0-70.0); PLATELET COUNT (AUTO) 394 K/uL (150-450); RED CELL DISTRIBUTION WIDTH 13.2 % (11.5-14.5); WHITE BLOOD COUNT (AUTO) 5.8 K/uL (4.5-11.0)
[2024-03-26] MEDS: FUROSEMIDE 20 MG/2 ML VIAL IVP SCH (07:47)
[2024-03-26 08:00] LABS: CREATININE 1.41 mg/dL (0.60-1.30); POTASSIUM 4.5 mmol/L (3.5-5.1)
[2024-03-26] MEDS: FUROSEMIDE 20 MG TABLET PO SCH (10:34)
[2024-03-26 10:51] VITALS: BP 107/53; PULSE 66; RESP 19; TEMP 98; O2SAT 97
[2024-03-26 12:41] LABS: GLUCOMETER DEV NAME(LOC) 5N.2C; GLUCOSE,POINT OF CARE 129 MG/DL (70-110)
[2024-03-26 14:55] VITALS: BP 105/49; PULSE 62; RESP 18; TEMP 98.1; O2SAT 98
[2024-03-26 18:51] LABS: GLUCOMETER DEV NAME(LOC) 5S.1D; GLUCOSE,POINT OF CARE 104 MG/DL (70-110)
[2024-03-26 19:34] VITALS: BP 99/52; PULSE 70; RESP 18; TEMP 97.9; O2SAT 97
[2024-03-27] VITALS (8 sets, daily range): BP systolic 97–124; BP diastolic 53–76; PULSE 58–70; RESP 17–18; TEMP 97.5–98.2; O2SAT 96–100
[2024-03-27 07:11] LABS: GLUCOMETER DEV NAME(LOC) 5N.2C; GLUCOSE,POINT OF CARE 132 MG/DL (70-110)
[2024-03-27 07:11] LABS: GLUCOMETER DEV NAME(LOC) 5S.1D; GLUCOSE,POINT OF CARE 145 MG/DL (70-110)
[2024-03-27 08:56] LABS: BASOPHILS % (AUTO) 0.5 % (0.0-2.0); EOSINOPHILS % (AUTO) 3.9 % (1.0-6.0); HEMATOCRIT 45.7 % (41-53); HEMOGLOBIN 15.4 g/dL (13.5-17.5); LYMPHOCYTES # (AUTO) 2.1 K/uL (1.0-4.8); LYMPHOCYTES % (AUTO) 32.3 % (22.0-44.0); MEAN CORPUSCULAR HEMOGLOBIN 32.9 pg (26.0-34.0); MEAN CORPUSCULAR HGB CONC 33.7 G/dL (31.0-37.0); MEAN CORPUSCULAR VOLUME 97 fL (80-100); MONOCYTES # (AUTO) 0.7 K/uL (0.1-1.0); MONOCYTES % (AUTO) 10.4 % (2.0-9.0); NEUTROPHILS # (AUTO) 3.4 K/uL (1.8-7.7); NEUTROPHILS % (AUTO) 52.9 % (40.0-70.0); PLATELET COUNT (AUTO) 458 K/uL (150-450); RED CELL DISTRIBUTION WIDTH 13.3 % (11.5-14.5); WHITE BLOOD COUNT (AUTO) 6.4 K/uL (4.5-11.0)
[2024-03-27 09:08] LABS: CALCIUM, TOTAL 9.7 mg/dL (8.8-10.5); CREATININE 1.44 mg/dL (0.60-1.30); POTASSIUM 4.5 mmol/L (3.5-5.1)
[2024-03-27 13:41] LABS: GLUCOMETER DEV NAME(LOC) 5N.2C; GLUCOSE,POINT OF CARE 125 MG/DL (70-110)
[2024-03-28] VITALS (9 sets, daily range): BP systolic 95–113; BP diastolic 46–62; PULSE 58–75; RESP 13–19; TEMP 97.6–98.8; O2SAT 95–99
[2024-03-28 12:21] LABS: GLUCOMETER DEV NAME(LOC) 5N.2C; GLUCOSE,POINT OF CARE 100 MG/DL (70-110)
[2024-03-28 17:21] LABS: GLUCOMETER DEV NAME(LOC) 5S.1D; GLUCOSE,POINT OF CARE 130 MG/DL (70-110)
[2024-03-28 17:21] LABS: GLUCOMETER DEV NAME(LOC) 5S.1D; GLUCOSE,POINT OF CARE 104 MG/DL (70-110)
[2024-03-28 19:31] LABS: GLUCOMETER DEV NAME(LOC) 5N.2C; GLUCOSE,POINT OF CARE 131 MG/DL (70-110)
[2024-03-28 19:31] LABS: GLUCOMETER DEV NAME(LOC) 5N.2C; GLUCOSE,POINT OF CARE 154 MG/DL (70-110)
[2024-03-29 00:30] VITALS: BP 119/62; PULSE 62; RESP 16; TEMP 97.5; O2SAT 97
[2024-03-29 08:23] LABS: BASOPHILS % (AUTO) 0.6 % (0.0-2.0); EOSINOPHILS % (AUTO) 3.5 % (1.0-6.0); HEMATOCRIT 40.2 % (41-53); HEMOGLOBIN 13.5 g/dL (13.5-17.5); LYMPHOCYTES # (AUTO) 1.4 K/uL (1.0-4.8); LYMPHOCYTES % (AUTO) 27.3 % (22.0-44.0); MEAN CORPUSCULAR HEMOGLOBIN 32.7 pg (26.0-34.0); MEAN CORPUSCULAR HGB CONC 33.7 G/dL (31.0-37.0); MEAN CORPUSCULAR VOLUME 97 fL (80-100); MONOCYTES # (AUTO) 0.5 K/uL (0.1-1.0); NEUTROPHILS # (AUTO) 3.1 K/uL (1.8-7.7); NEUTROPHILS % (AUTO) 58.6 % (40.0-70.0); PLATELET COUNT (AUTO) 341 K/uL (150-450); RED BLOOD CELL COUNT(AUTO) 4.14 MIL/uL (4.50-5.90); RED CELL DISTRIBUTION WIDTH 13.1 % (11.5-14.5); WHITE BLOOD COUNT (AUTO) 5.3 K/uL (4.5-11.0)
[2024-03-29 08:35] LABS: BILIRUBIN,TOTAL 0.5 mg/dL (0.1-1.0); CALCIUM, TOTAL 8.9 mg/dL (8.8-10.5); CREATININE 1.3 mg/dL (0.60-1.30); POTASSIUM 4.5 mmol/L (3.5-5.1); TOTAL PROTEIN, SERUM 7.1 g/dL (6.4-8.2)
[2024-03-29 08:57] VITALS: BP 118/60; PULSE 67; RESP 16; TEMP 97.7; O2SAT 96
[2024-03-29 11:31] LABS: GLUCOMETER DEV NAME(LOC) 5N.2C; GLUCOSE,POINT OF CARE 127 MG/DL (70-110)
[2024-03-29 11:31] LABS: GLUCOMETER DEV NAME(LOC) 5S.1D; GLUCOSE,POINT OF CARE 142 MG/DL (70-110)
[2024-03-29 11:31] LABS: GLUCOMETER DEV NAME(LOC) 5N.2C; GLUCOSE,POINT OF CARE 111 MG/DL (70-110)
[2024-03-29 11:55] VITALS: BP 132/58; PULSE 65; RESP 17; TEMP 97.9; O2SAT 98
[2024-03-29 14:26] VITALS: BP 132/58; PULSE 65; RESP 18; TEMP 97.9; O2SAT 98
[2024-03-29] MEDS ORDERED: ASPI-1444 PO (14:53)
[2024-03-29] MEDS ORDERED: METO25XL PO (14:53)
[2024-03-29] MEDS ORDERED: ATOR40TA28 PO (14:54)
[2024-03-29] MEDS ORDERED: DAPA5TAB PO (14:55)
[2024-03-29] MEDS ORDERED: FURO20TA5 PO (14:56)
[2024-03-29 15:35] VITALS: BP 126/69; PULSE 67; RESP 17; TEMP 96.9; O2SAT 97
== END 2024-03-29 17:00 | disposition home or self-care (01) | DRG 280 ==
LOC: EMS 09:01 → EDH 10:48 → ICU 20:34 → 5S 03-17 17:29
PROVIDERS: ADMIT Family Medicine; ATTEND Internal Medicine
PROC: 5A09357 Assistance with Respiratory Ventilation, Less than 24 Consecutive Hours, Continuous Positive Airway Pressure (ICD-10-PCS; 2024-03-15)
PROC: 0W9B3ZZ Drainage of Left Pleural Cavity, Percutaneous Approach (ICD-10-PCS; principal; 2024-03-16)
PROC: 4A023N7 Measurement of Cardiac Sampling and Pressure, Left Heart, Percutaneous Approach (ICD-10-PCS; 2024-03-17)
PROC: B2111ZZ Fluoroscopy of Multiple Coronary Arteries using Low Osmolar Contrast (ICD-10-PCS; 2024-03-17)
PROC: B2151ZZ Fluoroscopy of Left Heart using Low Osmolar Contrast (ICD-10-PCS; 2024-03-17)
DX: I21.4 Non-ST elevation (NSTEMI) myocardial infarction (principal); I50.43 Acute on chronic combined systolic (congestive) and diastolic (congestive) heart failure; J96.01 Acute respiratory failure with hypoxia; J98.11 Atelectasis; N17.9 Acute kidney failure, unspecified; I45.2 Bifascicular block; J91.8 Pleural effusion in other conditions classified elsewhere; I11.0 Hypertensive heart disease with heart failure; E11.9 Type 2 diabetes mellitus without complications; E78.5 Hyperlipidemia, unspecified; I25.5 Ischemic cardiomyopathy; K44.9 Diaphragmatic hernia without obstruction or gangrene; K80.20 Calculus of gallbladder without cholecystitis without obstruction; E87.6 Hypokalemia; N28.1 Cyst of kidney, acquired; Z20.822 Contact with and (suspected) exposure to COVID-19; I25.10 Atherosclerotic heart disease of native coronary artery without angina pectoris; K21.9 Gastro-esophageal reflux disease without esophagitis; E83.42 Hypomagnesemia; Z82.49 Family history of ischemic heart disease and other diseases of the circulatory system; Z83.3 Family history of diabetes mellitus
CPT/HCPCS: 32555; 36600; 71045; 71250; 76942; 80048; 80053; 80061; 81003; 82465; 82805; 82945; 82962; 83036; 83605; 83615; 83735; 83880; 83986; 84132; 84145; 84157; 84484; 85007; 85025; 85027; 85610; 85730; 87015; 87075; 87081; 87101; 87205; 87206; 87481; 87804; 88108; 88305; 89051; 93005; 93306; 94660; 99285; J1644; J1940; J2250; J3010; J3475; J3480; J3490; Q9967; 36415-L1; 36415-TC; 87070; Z7610